=== PATIENT | male | born 1960 | race Caucasian/White ===

== ENCOUNTER 2018-04-27 18:13 | Outpatient (CLI) | payer BC, OTHER ==
--- NOTE | 2018-04-27 19:22 | CT Report ---
Reason: TOOTH INFECTION,SINUS PAIN Procedure Date: 04/27/2018 Accession Number: [id number] / [id number] Procedure: CT - Sinuses CPT Code: FULL RESULT: EXAM: CT SINUS EXAM DATE: 04/27/2018 06:35 PM. HISTORY: TOOTH INFECTION. SINUS PAIN. COMPARISONS: None. TECHNIQUE: Routine multi-axial CT imaging performed through the sinuses. Iodinated IV contrast: None. Reconstructions: Multiplanar reformats. In accordance with CT protocol optimization, one or more of the following dose reduction techniques were utilized for this exam: automated exposure control, adjustment of mA and/or KV based on patient size, or use of iterative reconstructive technique. FINDINGS: RIGHT Frontal: Normal. Ethmoid: Normal. Maxillary: Dependent mucus retention cysts, greater than on the left. Sphenoid: Normal. Drainage Pathways: The frontal recess, ostiomeatal complex and sphenoethmoidal recess are patent and normal. LEFT Frontal: Normal. Ethmoid: Normal. Maxillary: Dependent mucus retention cysts. Sphenoid: Normal. Drainage Pathways: The frontal recess, ostiomeatal complex and sphenoethmoidal recess are patent and normal. Nasal Cavity: Small nasal septal defect noted. Osseous Structures: Unremarkable. Orbits: Unremarkable. Other: None. IMPRESSION: 1. Mucus retention cysts in the maxillary sinuses, right greater than left. 2. Nasal septal defect noted. RADIA
== END 2018-04-27 18:14 | disposition home or self-care (01) ==
LOC: DI 18:13
PROVIDERS: ATTEND Physician Assistant Medical
DX: J34.1 Cyst and mucocele of nose and nasal sinus (principal); K04.7 Periapical abscess without sinus
CPT/HCPCS: 70486

== ENCOUNTER 2019-08-14 08:00 | Outpatient (CLI) | payer OTHER ==
--- NOTE | 2019-08-15 08:20 | Ultrasound Report ---
Reason: INCREASED LOVE Procedure Date: 08/14/2019 Accession Number: [id number] / [id number] Procedure: US - Abdomen Limited CPT Code: Final Report FULL RESULT: EXAM: ABDOMEN ULTRASOUND LIMITED, RUQ EXAM DATE: 08/14/2019 08:58 AM. CLINICAL HISTORY: Increased LOVE. COMPARISON: None available. TECHNIQUE: Real-time scanning was performed with static images obtained. FINDINGS: Liver: Diffusely echogenic liver parenchyma. No suspicious solid masses. There is an anechoic cyst measuring 2.2 x 2.6 x 2.6 cm for which no specific additional follow-up is considered necessary. Liver size approximately 18.8. cm. Main portal vein flow: Hepatopetal. Gallbladder: Normal. No stones, wall thickening, or sonographic Pinzon's sign. Biliary System: CBD measures 2 mm. No intrahepatic or extrahepatic ductal dilatation. Other: No right hydronephrosis. IMPRESSION: Echogenic liver parenchyma suggesting steatosis. RADIA
== END 2019-08-14 08:01 | disposition home or self-care (01) ==
LOC: DI 08:00
PROVIDERS: ATTEND Internal Medicine Gastroenterology
DX: R74.0 Nonspecific elevation of levels of transaminase and lactic acid dehydrogenase [LDH] (principal)
CPT/HCPCS: 76705

== ENCOUNTER 2022-08-07 07:39 | Outpatient (CLI) | payer OTHER ==
--- NOTE | 2022-08-07 10:51 | Ultrasound Report ---
PROCEDURE: Abdomen Limited INDICATIONS: ELEVATION OF LEVELS OF LIVER TRANSAMINASE LEVELS TECHNIQUE: Real-time focused scanning was performed of the abdomen, with image documentation. COMPARISONS: None. FINDINGS: Liver: Increased liver echogenicity, with posterior attenuation, most consistent with moderate to se [place]ton hepatic steatosis. Gallbladder: Unremarkable. Biliary ducts: Intrahepatic bile ducts are non-dilated. Extrahepatic bile duct caliber measures 4 m m. Normal is 6-7 mm or less in diameter, or 10 mm or less post-cholecystectomy. Pancreas: Not well visualized due to overlying bowel gas. Right kidney: Normal in size and echotexture. Right kidney measures 11.9 cm long. No hydronephrosis or nephrolithiasis. No solid masses. No complex renal cystic lesions which require follow-up. Aorta: Visualized aorta is normal in caliber at less than 3 cm. IVC: Intrahepatic inferior vena cava is patent. Miscellaneous: No free abdominal fluid. IMPRESSION: Marked hepatic steatosis. Given elevated LFTs, the patient may be at risk for developing fibrosis. Reviewed by: Sid Parmar on 08/07/2022 10:49 AM PDT Approved by: Sid Parmar on 08/07/2022 10:49 AM PDT Station ID: [id number]
== END 2022-08-07 07:40 | disposition home or self-care (01) ==
LOC: DI 07:39
PROVIDERS: ATTEND Physician Assistant
DX: K76.0 Fatty (change of) liver, not elsewhere classified (principal)

== ENCOUNTER 2023-10-13 13:04 | Outpatient (CLI) | payer OTHER ==
--- NOTE | 2023-10-13 13:58 | CT Report ---
PROCEDURE: Sinus INDICATIONS: PANSINUSITIS TECHNIQUE: Noncontrast 3.0 mm axial images acquired from the frontal sinuses to the mid-sella, with coronal and sagittal reformats. For radiation dose reduction, the following was used: automated exposure control , adjustment of mA and/or kV according to patient size. COMPARISON: 04/27/2018. FINDINGS: Image quality: Excellent. Maxillary Sinuses: No bony remodeling or destruction. Bilateral retention cysts. No mucosal thickeni ng. Ethmoid Air Cells: No bony remodeling or destruction. Sinuses are clear. Sphenoid Sinuses: No bony remodeling or destruction. Sinuses are clear. Frontal Sinuses: No bony remodeling or destruction. Sinuses are clear. Ostiomeatal Complexes: Ostiomeatal complexes are patent but narrowed by bilateral Felipe cells. Miscellaneous: Visualized intra-orbital contents are normal. Right-sided sawyer bullosa. No signi ficant nasal septal deviation. Stable small nasal septal defect. IMPRESSION: Maxillary sinus mucous retention cysts. The paranasal sinuses are otherwise clear. Reviewed by: Jerry Zafar MD on 10/13/2023 1:57 PM PDT Approved by: Jerry Zafar MD on 10/13/2023 1:57 PM PDT Station ID: [id number]
== END 2023-10-13 13:05 | disposition home or self-care (01) ==
LOC: DI 13:04
PROVIDERS: ATTEND Otolaryngology
DX: J34.1 Cyst and mucocele of nose and nasal sinus (principal)